=== PATIENT | female | born 2000 | race Caucasian/White ===

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

== ENCOUNTER 2023-06-30 20:55 | Emergency (ER) | payer OTHER ==
[~2023-06-30] VITALS: Ht 154.9 cm
[2023-06-30] MEDS ORDERED: AZITHROMYCIN 250 MG TAB PO ONE (21:35)
[2023-06-30] MEDS ORDERED: METRONIDAZOLE 500 MG TAB PO ONE (21:35)
[2023-06-30] MEDS ORDERED: Water, Sterile 10 ML VIAL ONE (21:50)
== END 2023-06-30 21:57 | disposition home or self-care (01) ==
LOC: ED 20:55
DX: A64 Unspecified sexually transmitted disease (principal); Z98.890 Other specified postprocedural states